=== PATIENT | male | born 1980 | race Two or more races ===

== ENCOUNTER 2018-05-12 16:57 | Inpatient (IN) | payer OTHER ==
[~2018-05-12] VITALS: Ht 152.4 cm; Wt 61.7 kg
--- NOTE | 2018-05-12 17:10 | NUR ---
PT BIBRA FROM [facility] TO ER BED 11 FOR SYNCOPAL EPISODE, PT IS AAOX4, NOT IN RESPIRATORY DISTRESS, V/S STABLE, KEPT RESTED AND COMFORTABLE, WILL CONTINUE TO MONITOR.
--- NOTE | 2018-05-12 17:25 | NUR ---
LABS DRAWNED AND SENT TO LAB.
--- NOTE | 2018-05-12 17:29 | NUR ---
PT IS WHEELED TO CT SCAN VIA [facility].
[2018-05-12] MEDS ORDERED: IV NS 0.9% 1,000 ML BAG IV ONE (17:30)
[2018-05-12 17:48] LABS: BASOPHILS % (AUTO) 0.3 % (0.0-2.0); EOSINOPHILS % (AUTO) 0.3 % (0.0-6.0); HEMATOCRIT 47 % (39-51); HEMOGLOBIN 16.1 g/dL (13.5-17.5); LYMPHOCYTES # (AUTO) 2.4 /CMM (0.8-4.8); LYMPHOCYTES % (AUTO) 28.9 % (20.0-44.0); MEAN CORPUSCULAR HGB CONC 35 g/dl (31.0-36.0); MEAN CORPUSCULAR VOLUME 98 fL (80-96); MONOCYTES # (AUTO) 0.4 /CMM (0.1-1.30); MONOCYTES % (AUTO) 4.7 % (2.0-12.0); NEUTROPHILS # (AUTO) 5.5 /CMM (1.8-8.9); NEUTROPHILS % (AUTO) 65.8 % (43.0-81.0); PLATELET COUNT (AUTO) 193 /CMM (150-450); RED BLOOD CELL COUNT(AUTO) 4.73 MIL/uL (4.5-6.0); WHITE BLOOD COUNT (AUTO) 8.4 K/uL (4.3-11.0)
[2018-05-12 17:53] LABS: CALCIUM, SERUM 9.5 mg/dL (8.5-10.1); CARBON DIOXIDE 23 mmol/L (21-32); CHLORIDE 103 mmol/L (98-107); CREATININE 1.4 mg/dL (0.6-1.3); GLUCOSE 107 mg/dL (74-106); POTASSIUM 3.3 mmol/L (3.5-5.1); SODIUM SERUM 141 mmol/L (136-145); UREA NITROGEN, BLOOD 16 mg/dL (7-18)
[2018-05-12 17:58] LABS: ALANINE AMINOTRANSFERASE 110 U/L (12-78); ALBUMIN 4.3 g/dL (3.4-5.0); ALKALINE PHOSPHATASE 62 U/L (46-116); ASPARTATE AMINOTRANSFERASE 33 U/L (15-37); BILIRUBIN,DIRECT 0.3 mg/dL (0.0-0.2); BILIRUBIN,TOTAL 0.6 mg/dL (0.2-1.0); TOTAL PROTEIN, SERUM 8.1 g/dL (6.4-8.2)
[2018-05-12] MEDS ORDERED: LISI-603 PO (18:14)
[2018-05-12] MEDS ORDERED: DRON10CA PO (18:14)
[2018-05-12] MEDS ORDERED: DOLU50TA PO (18:14)
[2018-05-12] MEDS ORDERED: RITO100T4 PO (18:14)
[2018-05-12] MEDS ORDERED: EMTR1TAB17 PO (18:14)
[2018-05-12] MEDS ORDERED: DARU800T2 PO (18:14)
[2018-05-12 18:37] LABS: MAGNESIUM 2.1 mg/dL (1.8-2.4); PHOSPHORUS 3.7 mg/dL (2.5-4.9)
[2018-05-12] MEDS ORDERED: ONDANSETRON HCL/PF 4 MG/2 ML VIAL ONE (19:00)
[2018-05-12] MEDS ORDERED: ONDANSETRON HCL/PF 4 MG/2 ML VIAL IV ONE (19:00)
[2018-05-12 19:25] LABS: THYROID STIMULATING HORMONE 2.922 uIU/mL (0.358-3.74)
--- NOTE | 2018-05-12 19:28 | NUR ---
ENDORSED TO [facility]ASQUES FOR AUGUSTO.
[2018-05-12] MEDS ORDERED: MAG HYDROX/AL HYDROX/SIMETH 30 ML UDC PO PRN (20:30)
[2018-05-12] MEDS ORDERED: POTASSIUM CHLORIDE 20 MEQ TAB.PRT.SR PO ONE ×2 (20:30→20:43)
[2018-05-12] MEDS ORDERED: IV NS 0.9% 1,000 ML IV PRN (20:30)
[2018-05-12] MEDS ORDERED: HYDROCODONE/APAP 5/325MG 1 EACH TABLET PO PRN (20:30)
[2018-05-12] MEDS ORDERED: Z GUARD REMEDY 2 OZ OINT TP PRN (20:30)
[2018-05-12] MEDS ORDERED: ZOLPIDEM TARTRATE 5 MG TABLET PO PRN (20:30)
[2018-05-12] MEDS ORDERED: MAGNESIUM HYDROXIDE 30 ML UDC PO PRN (20:30)
[2018-05-12] MEDS ORDERED: ACETAMINOPHEN 325 MG TABLET PO PRN (20:30)
[2018-05-12] MEDS ORDERED: ONDANSETRON HCL/PF 4 MG/2 ML VIAL IVP PRN (20:30)
--- NOTE | 2018-05-12 20:39 | NUR ---
REPORT GIVEN TO SULAIMAN BOURGEOIS
--- NOTE | 2018-05-12 21:45 | NUR ---
RECEIVED PATIENT FROM ER FOR DX SYNCOPE. AO X 3, ABLE TO MAKE NEEDS KNOWN. NO ACUTE DISTRESS NOTED. DENIES ANY PAIN AT THIS TIME. IV SITE PATENT, INTACT; FLUSHED. SKIN INTACT. TELE READING SINUS RHYTHM. SAFETY REMINDERS GIVEN. ORIENTATION TO ROOM AND UNIT GIVEN TO PATIENT. ON LOW BED WITH BILATERAL UPPER SIDE RAILS UP. CALL MONTALVO WITHIN EASY REACH. WILL CONTINUE TO MONITOR.
[2018-05-12 21:50] VITALS: BP 102/63
[2018-05-12] MEDS: ENOXAPARIN SODIUM 40 MG/0.4 ML DISP.SYRIN SQ SCH (22:04)
[2018-05-12 22:37] VITALS: BP 102/63
[2018-05-12] MEDS ORDERED: RANI150T43 PO (23:14)
[2018-05-13] VITALS: BP 94/53
[2018-05-13 00:34] VITALS: BP 94/53
[2018-05-13 04:27] VITALS: BP 112/70
--- NOTE | 2018-05-13 06:00 | NUR ---
PATIENT ASLEEP, EASILY AROUSABLE. RESPIRATIONS EVEN. NO SIGNS OF PAIN NOTED. NEEDS ATTENDED. SAFETY PRECAUTIONS AND COMFORT MEASURES IN PLACE. WILL GIVE REPORT TO DAY SHIFT FOR CONTINUITY OF CARE.
[2018-05-13 07:18] LABS: BASOPHILS % (AUTO) 0.1 % (0.0-2.0); EOSINOPHILS % (AUTO) 0.5 % (0.0-6.0); HEMATOCRIT 44 % (39-51); LYMPHOCYTES # (AUTO) 0.5 /CMM (0.8-4.8); LYMPHOCYTES % (AUTO) 5.9 % (20.0-44.0); MEAN CORPUSCULAR HGB CONC 34 g/dl (31.0-36.0); MEAN CORPUSCULAR VOLUME 98 fL (80-96); MONOCYTES # (AUTO) 0.4 /CMM (0.1-1.30); MONOCYTES % (AUTO) 4.7 % (2.0-12.0); NEUTROPHILS # (AUTO) 7.5 /CMM (1.8-8.9); NEUTROPHILS % (AUTO) 88.8 % (43.0-81.0); PLATELET COUNT (AUTO) 146 /CMM (150-450); WHITE BLOOD COUNT (AUTO) 8.5 K/uL (4.3-11.0)
[2018-05-13 07:26] LABS: CALCIUM, SERUM 8.2 mg/dL (8.5-10.1); CREATININE 0.9 mg/dL (0.6-1.3); PHOSPHORUS 2.8 mg/dL (2.5-4.9); POTASSIUM 3.8 mmol/L (3.5-5.1)
--- NOTE | 2018-05-13 07:38 | NUR ---
LIABILITY CLAIMS MANAGER OPENING NOTES RECEIVED PT LAYING IN BED. PT IS A/O X4, AFEBRILE. EASILY AROUSABLE. RESPIRATIONS ARE EVEN AND UNLABORED, NOT IN ANY ACUTE DISTRESS NOTED. PT DENIES ANY PAIN AT THIS TIME, NO C/O SOB, N/V. HOWEVER, C/O OF FEELING NAUSEATED. IV SITE TO LAC INTACT, NO INFILTRATION NOTED. DRESSING KEPT CLEAN AND DRY. IV FLUIDS NOT RUNNING AT THIS TIME, PT STATED "CAN YOU PUT IT BACK ON LATER JUST BECAUSE I CONSTANTLY GO TO THE BATHROOM." ENCOURAGED PT TO DRINK FLUIDS TOLERATED. SAFETY MEASURES ARE IN PLACE. INSTRUCTED PT TO USE CALL LIGHT WHEN ASSISTANCE IS NEEDED, CALL LIGHT IS LEFT WITHIN REACH. WILL CONTINUE TO MONITOR THROUGHOUT SHIFT FOR CONTINUITY OF CARE.
--- NOTE | 2018-05-13 07:54 | NUR ---
ORTHOSTATICS-- LYING BP 117/72 HR 72 SITTING BP 113/70 HR 78 STANDING BP 121/74 HR 72
[2018-05-13 08:00] VITALS: BP_SYST 110; BP_SYST 112; BP_DIAS 70; BP_DIAS 72
--- NOTE | 2018-05-13 08:15 | NUR ---
CHEMICAL DETECTION EXPERT NOTES-- DR. YEH MADE AWARE OF ORTHOSTATICS.
--- NOTE | 2018-05-13 08:41 | NUR ---
CHILD SUPPORT SPECIALIST NOTES-- PT C/O FEELING NAUSEATED AND NOTED WITH X1 CLEAR EMESIS. ADMINISTERED ZOFRAN ORDERED.
--- NOTE | 2018-05-13 08:42 | NUR ---
INTERNATIONAL AFFAIRS VICE PRESIDENT NOTES-- NOTIFIED PAMELA SOUNDING DEVICE OPERATOR RE: PT FEELING NAUSEATED AND X1 EMESIS.
[2018-05-13] MEDS ORDERED: LISINOPRIL (20MG) 20 MG TABLET PO SCH (09:00)
[2018-05-13] MEDS: RITONAVIR 100 MG PO SCH (13:10)
[2018-05-13] MEDS: EMTRICITABINE PO SCH (13:33)
[2018-05-13] MEDS: TENOFOV ALAFENAM PO SCH (13:33)
[2018-05-13 16:00] VITALS: BP 118/70
--- NOTE | 2018-05-13 17:17 | NUR ---
PRODUCT SUPPORT ANALYST NOTES-- PT SEEN AND EXAMINED BY MARÍA ROSE FOR NEURO W/ ORDERS NOTED AND CARRIED OUT. COLLECTED URINE SPECIMEN FOR DRUG SCREEN AND UA PROFILE
--- NOTE | 2018-05-13 18:35 | NUR ---
MACADAM RAKER CLOSING NOTES ALL DUE MEDS GIVEN, NEEDS MET AND RENDERED. PT IS A/O X4, AFEBRILE. RESPIRATIONS ARE EVEN AND UNLABORED, NOT IN ANY ACUTE DISTRESS NOTED. PT DENIES ANY PAIN, SOB, N/V AT THIS TIME. IV SITE TO LAC INTACT, NO INFILTRATION NOTED. DRESSING KEPT CLEAN AND DRY. SAFETY MEASURES ARE IN PLACE. WILL ENDORSE TO NEXT SHIFT FOR CONTINUITY OF CARE.
--- NOTE | 2018-05-13 19:32 | NUR ---
MS BOURGEOIS NOTES RECEIVE PT IN BED A/O X 4, NO PAIN AT THIS TIME. IN STABLE CONDITION, NOT IN DISTRESS, SAFETY MEASURES IN PLACE. WILL CONTINUE TO MONITOR. Addendum: 05/13/18 at 1932 by EULALIA DILLARD RN SR 70'S IN THE TELE MONITOR
[2018-05-13 20:00] VITALS: BP 108/71
--- NOTE | 2018-05-13 20:00 | NUR ---
MS RN NOTES TEMPERATURE AT 101.5 COOLING MEASURES PROVIDED WILL CONTINUE TO MONITOR
[2018-05-13 20:23] LABS: APPEARANCE,URINE SL CLOUDY (CLEAR); BILIRUBIN,URINE NEGATIVE (NEGATIVE); BLOOD, URINE NEGATIVE Ery/uL (NEGATIVE); COLOR,URINE YELLOW (YELLOW); KETONES,URINE NEGATIVE (NEGATIVE); LEUKOCYTE ESTERASE ,URINE NEGATIVE (NEGATIVE); NITRITE, URINE NEGATIVE (NEGATIVE); PROTEIN,URINE NEGATIVE (NEGATIVE); UGLUCOSE NEGATIVE (NEGATIVE); UROBILINOGEN,URINE 0.2 EU/dL (0.2)
[2018-05-13] MEDS: ENOXAPARIN SODIUM 40 MG/0.4 ML DISP.SYRIN SQ SCH (20:39)
[2018-05-14] VITALS: BP 113/79
[2018-05-14 04:00] VITALS: BP 109/66
--- NOTE | 2018-05-14 06:28 | NUR ---
RUNSTITCHING MACHINE OPERATOR CLOSING NOTES ASLEEP AND EASILY AWAKEN. WITH SR 77'S HR IN THE TELE MONITOR. TOLERATING ROOM AIR 99%. KEPT CLEAN AND DRY AND COMFORTABLE, NEEDS ATTENDED AND ANTICIPATED. NO COMPLAIN OF PAIN. ALL NURSING CARE RENDERED. ON LOW BED AT ALL TIMES TO ENSURE SAFETY. SAFE HAZARD FREE ENVIRONMENT PROVIDED. CALL LIGHT WITHIN EASY TO REACH. WILL ENDORSE NEXT SHIFT CONTINUITY OF CARE Addendum: 05/14/18 at 0630 by EULALIA DILLARD RN PT STILL REFUSED IVF DESPITE EXPLAINING RISKS AND BENEFITS HOSPITALIST AWARE.
[2018-05-14 06:57] VITALS: BP_SYST 107; BP_SYST 112; BP_SYST 114; BP_DIAS 70; BP_DIAS 79; BP_DIAS 82
[2018-05-14 08:00] VITALS: BP 120/77
--- NOTE | 2018-05-14 08:00 | NUR ---
m/s milieu coordinator: initial assessment received pt in bed awake, a/ox4. no c/o pain or any discomfort. instructed to call for assistance. will continue to monitor.
[2018-05-14] MEDS: EMTRICITABINE PO SCH (08:23)
[2018-05-14] MEDS: RITONAVIR 100 MG PO SCH (08:23)
[2018-05-14] MEDS: TENOFOV ALAFENAM PO SCH (08:23)
--- NOTE | 2018-05-14 09:45 | NUR ---
m/s lead ramp agent: neuro f/u seen by emperatriz (malik) at this time. traffic signal technician at bedside and in progress.
--- NOTE | 2018-05-14 10:10 | NUR ---
m/s residential recycle driver: md visit seen and examined by katherin (malik), for d'c planning as stated. eeg in progress at bedside with tech.
--- NOTE | 2018-05-14 14:00 | NUR ---
m/s supervisor green end department: notes sounds asleep at this time with no distress. call light within reach. will monitor.
[2018-05-14 16:00] VITALS: BP 120/77
--- NOTE | 2018-05-14 16:00 | NUR ---
m/s dressmaking teacher: notes in bed awake. no distress noted. will continue to monitor.
--- NOTE | 2018-05-14 19:00 | NUR ---
m/s filtration supervisor: notes report given aspen (rn) for continuity of care.
--- NOTE | 2018-05-14 19:09 | NUR ---
MS RN NOTES RECEIVE PT IN BED WATCHING T.V A/O X 3, NO PAIN AT THIS TIME. IN STABLE CONDITION, NOT IN DISTRESS, SAFETY MEASURES IN PLACE. WILL CONTINUE TO MONITOR.
[2018-05-14 20:00] VITALS: BP 122/65
[2018-05-14] MEDS: ENOXAPARIN SODIUM 40 MG/0.4 ML DISP.SYRIN SQ SCH (20:28)
[2018-05-15 05:09] LABS: *BASOS 0 % (Not Estab.); *EOS 2 % (Not Estab.); *EOS, ABSOLUTE 0.1 x10E3/uL (0.0-0.4); *HCT 44.8 % (37.5-51.0); *HGB 15.6 g/dL (13.0-17.7); *IMMATURE GRANULOCYTES 0 % (Not Estab.); *LYMPHOCYTES 34 % (Not Estab.); *LYMPHS, ABSOLUTE 1.3 x10E3/uL (0.7-3.1); *MCH 33.8 pg (26.6-33.0); *MCHC 34.8 g/dL (31.5-35.7); *MCV 97 fL (79-97); *MONOCYTES 13 % (Not Estab.); *MONOS, ABSOLUTE 0.5 x10E3/uL (0.1-0.9); *NEUTROPHILS 51 % (Not Estab.); *PLT 142 x10E3/uL (150-379); *RBC 4.61 x10E6/uL (4.14-5.80); *RDW 13.4 % (12.3-15.4)
--- NOTE | 2018-05-15 06:31 | NUR ---
MS RN CLOSING NOTES ASLEEP AND EASILY AWAKEN. TOLERATING ROOM AIR 99%. NOT IN DISTRESS. NEEDS ATTENDED AND ANTICIPATED. NO COMPLAIN OF PAIN. ALL NURSING CARE RENDERED. KEPT CLEAN AND DRY AND COMFORTABLE, ON LOW BED AT ALL TIMES TO ENSURE SAFETY. SAFE HAZARD FREE ENVIRONMENT PROVIDED. CALL LIGHT WITHIN EASY TO REACH. WILL ENDORSE NEXT SHIFT CONTINUITY OF CARE
--- NOTE | 2018-05-15 07:24 | NUR ---
MS RN OPENING NOTES RECEIVED PT LAYING IN BED. PT IS A/O X4, AFEBRILE. EASILY AROUSABLE. RESPIRATIONS ARE EVEN AND UNLABORED, NOT IN ANY ACUTE DISTRESS NOTED. PT DENIES ANY PAIN AT THIS TIME, NO C/O SOB, N/V. HOWEVER, C/O OF FEELING NAUSEATED. IV SITE TO LAC INTACT, NO INFILTRATION NOTED. DRESSING KEPT CLEAN AND DRY. SAFETY MEASURES ARE IN PLACE. INSTRUCTED PT TO USE CALL LIGHT WHEN ASSISTANCE IS NEEDED, CALL LIGHT IS LEFT WITHIN REACH. WILL CONTINUE TO MONITOR THROUGHOUT SHIFT FOR CONTINUITY OF CARE.
[2018-05-15 08:00] VITALS: BP 124/90
--- NOTE | 2018-05-15 08:06 | NUR ---
ORTHOSTATICS-- LYING BP 107/67, HR 66 SITTING BP 130/77, HR 60 STANDING BP 121/82, HR 61
[2018-05-15 08:08] VITALS: BP_SYST 107; BP_SYST 121; BP_SYST 130; BP_DIAS 67; BP_DIAS 77; BP_DIAS 82
[2018-05-15] MEDS: RITONAVIR 100 MG PO SCH (08:13)
[2018-05-15] MEDS: TENOFOV ALAFENAM PO SCH (08:13)
[2018-05-15] MEDS: EMTRICITABINE PO SCH (08:13)
[2018-05-15 08:18] VITALS: BP 124/90
[2018-05-15 10:11] LABS: *% CD 4 POS. LYMPH 26.2 % (30.8-58.5); *% CD 8 POS. LYMPH 29.5 % (12.0-35.5); *ABSOLUTE CD 4 HELPER 341 /uL (359-1519); *ABSOLUTE CD 8 SUPPRESSOR 384 /uL (109-897); *CD4/CD8 RATIO 0.89 (0.92-3.72)
--- NOTE | 2018-05-15 10:15 | NUR ---
MS NETWORK SPECIALIST NOTE PT DISCHARGED TO HOME IN STABLE CONDITION VIA SELF, PRIVATE CAR. PER PAMELA MANAGER SPORTS, "IT IS OKAY FOR HIM TO DRIVE." PT IS A/O X4, AFEBRILE. RESPIRATIONS ARE EVEN AND UNLABORED, NOT IN ANY ACUTE DISTRESS NOTED. PUPILS ARE REACTIVE TO LIGHT, BILATERAL HAND COMMUNICATIONS CLERK ARE STRONG AND EQUAL. ABDOMEN IS SOFT AND NONDISTENDED, BOWEL SOUNDS ARE PRESENT IN ALL 4 QUADRANTS UPON AUSCULTATION. DENIES ANY BLADDER DISCOMFORT. PT DENIES ANY PAIN, SOB, N/V. PT STATES "I FEEL SO MUCH BETTER." EXPLAINED DISCHARGE INSTRUCTIONS TO PT WITH VERBAL AND WRITTEN AGREEMENT. NO SKIN ISSUES NOTED, SKIN IS INTACT. PERIPHERAL IV REMOVED, APPLIED PRESSURE AND TOLERATED WELL. ID BAND REMOVED. ACCOMPANIED PT TO LOBBY IN STABLE CONDITION, PT IS AMBULATORY WITH STEADY GAIT.
== END 2018-05-15 10:15 | disposition home or self-care (01) | DRG 48 ==
LOC: ER 16:59 → MED 20:08 → TELE 05-13 01:15 → MED 05-14 08:20
PROVIDERS: ADMIT Internal Medicine; ATTEND Nurse Practitioner Acute Care
DX: G90.8 Other disorders of autonomic nervous system (principal); N17.0 Acute kidney failure with tubular necrosis; I95.9 Hypotension, unspecified; B19.20 Unspecified viral hepatitis C without hepatic coma; J20.9 Acute bronchitis, unspecified; E87.6 Hypokalemia; E03.9 Hypothyroidism, unspecified; I10 Essential (primary) hypertension; Z85.72 Personal history of non-Hodgkin lymphomas
CPT/HCPCS: 36415; 70450-TC; 71045-TC; 80048-TC; 80061-TC; 80076-TC; 80305; 81000-TC; 82533; 83735-TC; 84100-TC; 84443-TC; 84484-TC; 85025-TC; 85730-TC; 86360; 87081-TC; 87400; 87806; 93307-TC; 95819-TC; A4606; G0378; J1650; J2405; J7030; Z7610